=== PATIENT | female | born 1975 | race Caucasian/White ===

== ENCOUNTER 2017-10-10 11:38 | Emergency (ER) | payer OTHER ==
[~2017-10-10] VITALS: Ht 157.5 cm; Wt 67.6 kg
[~2017-10-10 11:38] MED LIST: Acetaminophen/Hydrocodone PO; IBUPROFEN600 MG PO
[2017-10-10] MEDS ORDERED: HYDROCODONE/APAP 10MG-325MG TAB PO ONE (12:00)
--- NOTE | 2017-10-10 12:44 | Diagnostic Imaging Report ---
EXAMINATION: Head and orbits CT without contrast. HISTORY: Status post fall, trauma, pain COMPARISON: Head CT on 02/27/2010 TECHNIQUE: Multidetector axial images were obtained without contrast from the foramen magnum to the vertex and over the face. The images were reconstructed using brain and bone algorithms. Thin section brain images were reformatted into coronal and sagittal planes. Head CT findings: Skull: No lytic or blastic lesions. No fractures. Parenchyma: Normal. No mass, hemorrhage or CT evidence of acute vascular insult. Brain volume: Normal for age. Ventricles: No hydrocephalus or displacement. Arteries: No density suggestive of thrombus. Dural sinuses: No abnormal density. Extra-axial spaces: No abnormal density. Foramen magnum: No mass, Chiari malformation, or basilar invagination. Sella: No obvious mass. Paranasal/mastoid sinuses: Imaged portions unremarkable. Face CT findings: Bones: No acute facial fractures. Facial soft tissues: Prominent left forehead, periorbital and premaxillary soft tissue swelling and hematoma without postseptal extension. Orbits contents: Unremarkable. Paranasal sinuses and drainage pathways: Partial opacification of the left maxillary sinus, otherwise clear. Nasal septum and nasal cavities: Mild right-sided deviation IMPRESSION: 1. No intracranial abnormalities, particularly no hemorrhage 2. No acute facial fractures. 3. Prominent left periorbital and forehead soft tissues hematoma. Signed by: Dr. Tiffany Solorzano M.D. on 10/10/2017 12:40 PM
--- NOTE | 2017-10-10 12:56 | Diagnostic Imaging Report ---
EXAMINATION: CT of the cervical spine HISTORY: Status post fall, trauma, pain COMPARISON: None available TECHNIQUE: Multidetector helical axial images were obtained without contrast from the foramen magnum to T1. The images were reconstructed using bone and soft tissue algorithms and were viewed in axial, sagittal and coronal planes. FINDINGS: Alignment: Kyphotic malalignment centered at C5-C6. Soft tissues: Normal. Vertebrae: -No acute displaced fractures. -Chronic mild compression fracture of the C5 and mainly C6 vertebral bodies (decreased vertebral body height by approximately 10% and 25% respectively), with anterior wedging and associated kyphotic malalignment. Minimal dorsal displacement of the superior endplate of the C6 vertebral body results in mild canal stenoses. No bone fragments are seen within the spinal canal. Irregularity of the right articular pillar of C6 is likely sequela from remote trauma as well. Degenerative changes: Mild symmetric disc bulge and facet arthrosis at C5-C6 results in minimal canal narrowing, likely related to remote trauma. Otherwise no significant degenerative changes, no spinal canal or foraminal stenosis IMPRESSION: 1. No acute cervical spine postraumatic abnormalities. 2. Kyphotic malalignment and anterior wedging of the C5 and C6 vertebral bodies, likely the sequela from remote trauma Note: Acute postraumatic spinal cord, vascular or ligamentous injuries cannot adequately be assessed by CT. Signed by: Dr. Tiffany Solorzano M.D. on 10/10/2017 12:52 PM
[2017-10-10] MEDS ORDERED: TETANUS/DIPHTHERIA TOX ADULT 0.5 ML SYR IM ONE (13:30)
[2017-10-10 14:10] VITALS: BP 136/76
== END 2017-10-10 13:55 | disposition home or self-care (01) ==
LOC: ER 11:38
DX: S00.83XA Contusion of other part of head, initial encounter (principal); S00.81XA Abrasion of other part of head, initial encounter; S00.212A Abrasion of left eyelid and periocular area, initial encounter; S40.212A Abrasion of left shoulder, initial encounter; S80.212A Abrasion, left knee, initial encounter; W01.0XXA Fall on same level from slipping, tripping and stumbling without subsequent striking against object, initial encounter; F17.210 Nicotine dependence, cigarettes, uncomplicated
CPT/HCPCS: 70450; 70480; 72125; 99283

== ENCOUNTER 2018-10-10 07:02 | Emergency (ER) | payer OTHER ==
[~2018-10-10] VITALS: Ht 157.5 cm; Wt 67.6 kg
--- OUTSIDE RECORDS SUMMARY | 2018-10-10 07:06 | XMS REPORT ---
Author [facility] Address Unknown Phone Unavailable Care Team Providers Care Steam Pipe Fitter Name Role Phone Eric PARIKH Unavailable Unavailable Payers Payer Name Policy Type Policy Number Effective Date Expiration Date Problems This patient has no known problems. Allergies, Adverse Reactions, Alerts Allergy Name Allergy Type Status Severity Reaction(s) Onset Date Inactive Date Treating Clinician Comments No Known Allergies DA Active U 2015-11-27 00:00:00 Medications This patient has no known medications. Results Test Description Test Time Test Comments Text Results Atomic Results Result Comments SCR MAMM BILATERAL NILAY CAD DIGITAL W/AUGMENTATION 2018-09-03 13:13:20 - SCR MAMM BILATERAL NILAY CAD DIGITAL W/AUGMENTATIONBILATERAL DIGITAL SCREENING MAMMOGRAM 3D/2D WITH CAD WITH AUGMENTATION: 09/02/2018CLINICAL: Asymptomatic. Digital breast tomosynthesis was performed in addition to routine CC and MLO views. Current mammographic images were evaluated by either a [employer] M-Vu or a [employer] ImageChecker CAD (computer aided detection system). Comparison is made to exam dated 07/10/2017 mammogram - [facility]. The tissue of both breasts is heterogeneously dense. This may lower the sensitivity of mammography. There is a benign intramammary node in the right breast. Bilateral breast implants are intact. No suspicious mass, architectural distortion, malignant type calcification, or lymph node abnormality detected. Breast architecture is stable compared to prior exams.IMPRESSION: BENIGNThere is no mammographic evidence of malignancy. Resume annual screening mammography in one year. Jae Mujica M.D. et/penrad:09/03/2018 13:13:20 Imaging T echnologist: Patricia Bhatti FW, [facility] sent: BIRADS 1-2 Normal Mammogram BI-RADS: 2 Benign BASIC METABOLIC PANEL 2018-07-02 12:36:00 SODIUM (test code=NA) 140 mmol/L 136-145 POTASSIUM (test code=K) 4.3 mmol/L 3.5-5.1 CHLORIDE (test code=CL) 108.0 mmol/L 98-107 CARBON DIOXIDE (test code=CO2) 22.0 mmol/L 21-32 ANION GAP (test code=GAP) 14.3 10-20 GLUCOSE (test code=GLU) 83 mg/dL 74-106 BLOOD UREA NITROGEN (test code=BUN) 7 mg/dL 7-18 GLOMERULAR FILTRATION RATE (test code=GFR) > 60 mL/min >=60 Estimated GFR by using Modified MDRD formula.Chronic kidney disease is defined as either kidney damageor GFR <60 mL/min/1.73 m2 for >3 months. CREATININE (test code=CREAT) 0.60 mg/dL 0.55-1.02 Note change in reference range due to change in reagent. BUN/CREATININE RATIO (test code=BUN/CREA) 10.9 10-20 CALCIUM (test code=CA) 8.4 mg/dL 8.5-10.1 BASIC METABOLIC [id number] 12:30:00* Test Item Value Reference Range Comments SODIUM (test code=NA) 140 mmol/L 136-145 POTASSIUM (test code=K) 4.3 mmol/L 3.5-5.1 CHLORIDE (test code=CL) 108.0 mmol/L 98-107 CARBON DIOXIDE (test code=CO2) mmol/L 21-32 ANION GAP (test code=GAP) 10-20 GLUCOSE (test code=GLU) mg/dL 74-106 BLOOD UREA NITROGEN (test code=BUN) mg/dL 7-18 GLOMERULAR FILTRATION RATE (test code=GFR) mL/min >=60 CREATININE (test code=CREAT) mg/dL 0.55-1.02 BUN/CREATININE RATIO (test code=BUN/CREA) 10-20 CALCIUM (test code=CA) mg/dL 8.5-10.1 - XR HAND 3 + V [id number] 12:20:00 FAX: Cindy Shoemaker NP [place]: B St: REG FAX: Steve Crowley [phone] Name: SOBIA REYNOLDS [facility] : 1975 Age/S: 43/F [place] Lacy Unit #: [id number] Loc: [place] [address] Phys: Cindy Shoemaker NP Acct: [id number] Dis Date: Status: REG ER PHONE #: [phone] Exam Date: 07/02/2018 1216 FAX #: [phone] Reason: R thumb cat bite EXAMS: CPT CODE: [id number] XR HAND 3 + [place] RT [id number] HISTORY: Right hip, compatible right. COMPARISON: None available. 3 views of the right hand: No acute fracture or dislocation. Joint spaces are preserved. No radiopaque foreign bodies. Mild osteopenia. No AVN of the lunate or the scaphoid bones. IMPRESSION: No acute fracture or dislocation. Joint spaces are preserved. No radiopaque foreign bodies. at 1220 Reported and signed by: Owen Reeves M.D. CC: Cindy Shoemaker ADOPTION SPECIALIST; Steve Tran Technologist: HERBERTH LYNNE RT (R) Trnscrd Date/Time/By: 07/02/2018 (8 220) : By: [email or web address] Orig Print D/T: S: 07/02/2018 (3960) PAGE 1 Signed Report CBC W/O [id number] 12:16:00* Test Item Value Reference Range Comments WHITE BLOOD CELL (test code=WBC) K/mm3 4.5-12.5 RED BLOOD CELL (test code=RBC) mill/mm3 3.7-5.2 HEMOGLOBIN (test code=HGB) 14.9 gram/dL 11.5-15.5 HEMATOCRIT (test code=HCT) 45.1 % 36.0-46.0 MEAN CELL VOLUME (test code=MCV) fL 80-98 MEAN CELL HGB (test code=MCH) picogram 27.0-33.0 MEAN CELL HGB CONCETRATION (test code=MCHC) gram/dL 33.0-36.0 RED CELL DISTRIBUTION WIDTH (test code=RDW) % 11.6-16.2 PLATELET COUNT (test code=PLT) K/mm3 150-450 MEAN PLATELET VOLUME (test code=MPV) fL 6.7-11.0 CBC W/O [id number] 12:16:00* Test Item Value Reference Range Comments WHITE BLOOD CELL (test code=WBC) 13.0 K/mm3 4.5-12.5 RED BLOOD CELL (test code=RBC) 4.67 mill/mm3 3.7-5.2 HEMOGLOBIN (test code=HGB) 14.9 gram/dL 11.5-15.5 HEMATOCRIT (test code=HCT) 45.1 % 36.0-46.0 MEAN CELL VOLUME (test code=MCV) 96.6 fL 80-98 MEAN CELL HGB (test code=MCH) 31.9 picogram 27.0-33.0 MEAN CELL HGB CONCETRATION (test code=MCHC) 33.0 gram/dL 33.0-36.0 RED CELL DISTRIBUTION WIDTH (test code=RDW) 13.0 % 11.6-16.2 PLATELET COUNT (test code=PLT) 320 K/mm3 150-450 MEAN PLATELET VOLUME (test code=MPV) 9.0 fL 6.7-11.0 CT ORBIT/SELLA/PF [place] [address] Patient Name: SOBIA REYNOLDS MR #: [id number] : 1975 Age/Sex: 42/F Req #: [id number] Adm Physician: Ordered by: JUAN ANTONIO SALAS ADOPTION SPECIALIST Report #: [id number] Location: ER Room/Bed: Procedure: [id number] CT/CT ORBIT/SELLA/PF AZEB harris Date: 10/10/17 Exam Time: 1210 REPORT STATUS: Signed EXAMINATION: Head and orbits CT without contrast. HISTORY: Sta tus post fall, trauma, pain COMPARISON: Head CT on 02/27/2010 TECHNIQUE: Mul tidetector axial images were obtained without contrast from the foramen magnum to the vertex and over the face. The images were reconstructed using brain and bone algorithms. Thin section brain images were reformatted into coronal and sagittal planes. Head CT findings: Skull: No lytic or blastic l esions. No fractures. Parenchyma: Normal. No mass, hemorrhage or CT ev idence of acute vascular insult. Brain volume: Normal for age. Ventricles: No hydrocephalus or displacement. Arteries: No density rios ggestive of thrombus. Dural sinuses: No abnormal density. Extra- axial spaces: No abnormal density. Foramen magnum: No mass, Chiari malfo rmation, or basilar invagination. Sella: No obvious mass. Paran hanna/mastoid sinuses: Imaged portions unremarkable. Face CT findings: Bones: No acute facial fractures. Facial soft tissues: Prominent left forehead, periorbital and premaxillary soft tissue swelling and hematoma with out postseptal extension. Orbits contents: Unremarkable. Paranas al sinuses and drainage pathways: Partial opacification of the left maxillary sinus, otherwise clear. Nasal septum and nasal cavities: Mild right-side d deviation IMPRESSION: 1. No intracranial abnormalities, particularl y no hemorrhage 2. No acute facial fractures. 3. Prominent left saad orbital and forehead soft tissues hematoma. Signed by: Mehdi Alegria on 10/10/2017 12:40 PM Dictated By: LOUANN SOLORZANO MD Electronically Mai d By: LOUANN SOLORZANO MD on 10/10/17 1240 Transcribed By: DUANE on 10/10/17 1240 COPY TO: JUAN ANTONIO SALAS NP CT BRAIN WO [place] [address] Patient Name: SOBIA REYNOLDS MR #: [id number] : 1975 Age/[facility]: 42[id number] Req #: [id number] Adm Physician: Ordered by: JUAN ANTONIO SALAS ADOPTION SPECIALIST Report #: [id number] Location: ER Room/Bed: Procedure: [id number] CT/CT BRAIN WO Exam Date: 10/10/17 Exam Time: 1210 REPORT STATUS: Signed EXAMINATION: Head and orbits CT without contrast. HISTORY: Status post fall, trauma, pain COMPARISON: Head CT on 02/27/2010 TECHNIQUE: Multidetecto r axial images were obtained without contrast from the foramen magnum to the v ertex and over the face. The images were reconstructed using brain and bone al gorithms. Thin section brain images were reformatted into coronal and sagitta l planes. Head CT findings: Skull: No lytic or blastic lesions. No fractures. Parenchyma: Normal. No mass, hemorrhage or CT evidence of acute vascular insult. Brain volume: Normal for age. Ventric les: No hydrocephalus or displacement. Arteries: No density suggestive of thrombus. Dural sinuses: No abnormal density. Extra-axial spa koby: No abnormal density. Foramen magnum: No mass, Chiari malformation, or basilar invagination. Sella: No obvious mass. Paranasal/mast oid sinuses: Imaged portions unremarkable. Face CT findings: Bones: No acute facial fractures. Facial soft tissues: Prominent left forehead, periorbital and premaxillary soft tissue swelling and hematoma without posts eptal extension. Orbits contents: Unremarkable. Paranasal sinuse s and drainage pathways: Partial opacification of the left maxillary sinus, ot herwise clear. Nasal septum and nasal cavities: Mild right-sided deviati on IMPRESSION: 1. No intracranial abnormalities, particularly no hemo rrhage 2. No acute facial fractures. 3. Prominent left periorbital a nd forehead soft tissues hematoma. Signed by: Dr. Louann Solorzano M.D. on 10/10 12:40 PM Dictated By: LOUANN SOLORZANO MD 1240 Transcribed By: DUANE on 10/10/17 1240 FRONT EDGER Y TO: JUAN ANTONIO SALAS ADOPTION SPECIALIST CT CERVICAL SPINE WO [place] [address] Patient Name: SOBIA REYNOLDS MR #: [id number] : 1975 Age/Sex: 42/F Req #: [id number] Adm Physician: Ordered by: JUAN ANTONIO SALAS NP Report #: [id number] Location: ER Room/Bed: Procedure: [id number] CT/CT CERVICAL SPINE WO Zacha m Date: 10/10/17 Exam Time: 1210 REPORT STATUS: Signed EXAMINATION: CT of the cervical spine HISTORY: Status post fall, trauma, pain COMPARISON: None available TECHNIQUE: Multidetector helical a xial images were obtained without contrast from the foramen magnum to T1. The images were reconstructed using bone and soft tissue algorithms and were view ed in axial, sagittal and coronal planes. FINDINGS: Alignm ent: Kyphotic malalignment centered at C5-C6. Soft tissues: Normal. Vertebrae: -No acute displaced fractures. -Chronic mild comp ression fracture of the C5 and mainly C6 vertebral bodies (decreased vertebral body height by approximately 10% and 25% respectively), with anterior wedging and associated kyphotic malalignment. Minimal dorsal displacement of the supe rior endplate of the C6 vertebral body results in mild canal stenoses. No bone fragments are seen within the spinal canal. Irregularity of the right articul ar pillar of C6 is likely sequela from remote trauma as well. D egenerative changes: Mild symmetric disc bulge and facet arthrosis at C5-C6 re sults in minimal canal narrowing, likely related to remote trauma. Otherwise n o significant degenerative changes, no spinal canal or foraminal stenosis IMPRESSION: 1. No acute cervical spine postraumatic abnormalities. 2. Kyphotic malalignment and anterior wedging of the C5 and C6 vertebral johann dies, likely the sequela from remote trauma Note: Acute postraumatic spinal cord, vascular or ligamentous injuries cannot adequately be assessed by CT. Signed by: Dr. Louann Solorzano M.D. on 10/10/2017 12:52 PM Dictated By: LOUANN SOLORZANO MD 1252 Tra nscribed By: DUANE on 10/10/17 1252 COPY TO: JUAN ANTONIO SALAS NP
[2018-10-10] MEDS ORDERED: ONDANSETRON HCL INJ 2MG/ML 2ML 2 MG/ML VIAL IV NR (08:01)
[2018-10-10] MEDS ORDERED: SODIUM CHLORIDE 0.9% 1000ML 1,000 ML IV STA (08:01)
[2018-10-10] MEDS ORDERED: KETOROLAC TROMETHAMINE 30 MG/ML VIAL IV STA (08:01)
[2018-10-10 08:09] LABS: BASOPHILS % 0.5 % (0.0-1.0); EOSINOPHILS # (AUTO) 0.1 (0.0-0.4); EOSINOPHILS % 0.9 % (0.0-6.0); HEMOGLOBIN 14.5 g/dL (12.0-16.0); LYMPHOCYTES # (AUTO) 0.9 (1.0-3.2); LYMPHOCYTES % 10.7 % (18.0-39.1); MEAN CORPUSCULAR HEMOGLOBIN 32.5 pg (28-32); MEAN CORPUSCULAR HGB CONC 35.4 g/dL (31-35); MEAN CORPUSCULAR VOLUME 91.9 fL (81-99); MONOCYTES % 11.3 % (4.4-11.3); NEUTROPHILS # (AUTO) 6.7 (2.1-6.9); NEUTROPHILS % 76.3 % (38.7-80.0); PLATELET COUNT 279 x10e3/uL (140-360); RED BLOOD COUNT 4.46 x10e6/uL (3.6-5.1); RED CELL DISTRIBUTION WIDTH 12.7 % (11.7-14.4)
[2018-10-10 08:10] LABS: BILIRUBIN,URINE NEGATIVE (NEGATIVE); CLARITY,URINE CLEAR (CLEAR); COLOR,URINE YELLOW (YELLOW); KETONES,URINE NEGATIVE (NEGATIVE); LEUKOCYTE ESTERASE ,URINE NEGATIVE (NEGATIVE); NITRITE,URINE NEGATIVE (NEGATIVE); PROTEIN,URINE DIPSTICK NEGATIVE (NEGATIVE); URINE UROBILINOGEN 0.2 mg/dL (0.2 - 1)
[2018-10-10 08:31] LABS: PREGNANCY TEST, URINE NEGATIVE (NEGATIVE)
[2018-10-10 08:42] LABS: ALANINE AMINOTRANSFERASE 41 IU/L (0-55); ALBUMIN 4.6 g/dL (3.5-5.0); ALBUMIN/GLOBULIN RATIO 1.4 (0.8-2.0); ALKALINE PHOSPHATASE 79 IU/L (40-150); ANION GAP 17.7 mmol/L (8-16); BLOOD UREA NITROGEN 8 mg/dL (7-26); BUN/CREATININE RATIO 11 (6-25); CALCIUM 10.5 mg/dL (8.4-10.2); CARBON DIOXIDE 22 mmol/L (22-29); CHLORIDE 102 mmol/L (98-107); CREATININE, SERUM 0.75 mg/dL (0.57-1.11); EST GLOMERULAR FILTRATION RATE > 60 ML/MIN (60-); GLUCOSE 106 mg/dL (74-118); POTASSIUM 3.7 mmol/L (3.5-5.1); SODIUM 138 mmol/L (136-145)
[2018-10-10 08:53] LABS: BACTERIA,URINE FEW /HPF; EPITHELIAL CELLS,URINE RARE /LPF; RBC,URINE 0-5 /HPF (0-5); WBC,URINE (MAN) 0-5 /HPF (0-5)
--- NOTE | 2018-10-10 09:08 | Diagnostic Imaging Report ---
Exam: Abdominal film with upright chest film Clinical History: Abdominal pain, chest pain Comparison: None. DISCUSSION: Chest: The lungs are well-inflated and without focal airspace consolidation, pleural effusion, or pneumothorax. Cardiomediastinal contour and pulmonary vasculature are within normal limits. No acute osseous abnormality. No free air under the diaphragm. Abdomen: The bowel gas pattern shows no dilated, air-filled loops of bowel. No mass effect or organomegaly. Metallic clips in the pelvis likely related to tubal ligation. No abnormal calcifications. Right upper quadrant surgical clips reflective of prior cholecystectomy. Exostosis right iliac wing partially visualized. IMPRESSION: No acute cardiopulmonary abnormality. Nonobstructive bowel gas pattern. No nic pneumoperitoneum. Signed by: Dr. Joe Morin M.D. on 10/10/2018 9:04 AM
[2018-10-10 09:21] LABS: INR 0.82; PROTHROMBIN TIME 11.8 seconds (11.9-14.5)
[2018-10-10 09:22] LABS: PARTIAL THROMBOPLASTIN TIME 34.8 seconds (23.8-35.5)
[2018-10-10 09:40] LABS: CREATINE KINASE MB 1.2 ng/mL (0-5.0)
[2018-10-10] MEDS ORDERED: DICYCLOMINE HCL 20 MG/2 ML VIAL IM ONE (10:00)
--- NOTE | 2018-10-10 12:55 | Diagnostic Imaging Report ---
EXAMINATION: CT of the abdomen and pelvis with contrast. TECHNIQUE: Spiral CT images of the abdomen and pelvis were performed from the lung bases to the lesser trochanters after the intravenous administration of 100 cc Isovue-370. Coronal and sagittal reformatted images were obtained. COMPARISON: Acute abdominal series same day CLINICAL HISTORY:Diffuse abdominal pain DISCUSSION: ABDOMEN/PELVIS: LOWER THORAX:Unremarkable. HEPATOBILIARY: No focal hepatic lesions. No intra-or extrahepatic biliary ductal dilation. The gallbladder has been removed. SPLEEN: No splenomegaly. PANCREAS: No focal masses or ductal dilatation. ADRENALS: No adrenal nodules. KIDNEYS/URETERS: No hydronephrosis, stones, or solid mass lesions. PELVIC ORGANS/BLADDER: Urinary bladder is unremarkable. Uterus is neutral in position and appears normal. Bilateral tubal ligation clips. Left ovarian corpus luteum cyst. PERITONEUM/RETROPERITONEUM: No free air or fluid. LYMPH NODES: No pelvic sidewall, retroperitoneal, or mesenteric lymphadenopathy. VESSELS: Abdominal aorta, major branch vessels, and iliac arterial systems are patent. Common hepatic artery is replaced to the superior mesenteric artery. Portal vein, splenic vein, and superior mesenteric vein are patent centrally. GI TRACT: The large bowel shows no evidence of distention or wall thickening. The descending and sigmoid colon are collapsed and poorly evaluated. The appendix is normal. There is no small bowel dilatation to suggest obstruction. BONES AND SOFT TISSUE: No osseous destructive lesions. Degenerative disc changes and facet arthropathy at the lumbosacral junction. Bilateral breast implants partially visualized. IMPRESSION: No acute intra-abdominal or pelvic CT abnormalities. Signed by: Dr. Joe Morin M.D. on 10/10/2018 12:51 PM
[2018-10-10] MEDS ORDERED: IOPAMIDOL 370 MG/ML 200 ML INFUS..BTL INJ ONE (13:00)
[2018-10-10] MEDS ORDERED: SODIUM CHLORIDE 0.9% 50ML 50 ML ONE (13:00)
[2018-10-10] MEDS ORDERED: HYDROMORPHONE 2MG/ML 2 MG/ML ML IV NR (13:15)
[2018-10-10 14:10] VITALS: BP 160/88
== END 2018-10-10 14:30 | disposition home or self-care (01) ==
LOC: ER 07:02
DX: R10.84 Generalized abdominal pain (principal); R11.0 Nausea; K58.9 Irritable bowel syndrome, unspecified; Q78.0 Osteogenesis imperfecta
CPT/HCPCS: 36415; 74022; 74177; 80053; 81001; 81025; 82150; 82550; 82553; 83690; 84484; 85025; 85610; 85730; 93005; 99284; J0500; J1170; J1885; J2405; J7030; Q9967

== ENCOUNTER 2018-10-13 14:11 | Emergency (ER) | payer OTHER ==
[~2018-10-13] VITALS: Ht 157.5 cm; Wt 67.6 kg
[2018-10-13 15:54] LABS: BASOPHILS % 0.5 % (0.0-1.0); EOSINOPHILS # (AUTO) 0.3 (0.0-0.4); EOSINOPHILS % 3.2 % (0.0-6.0); HEMATOCRIT 39.4 % (34.2-44.1); HEMOGLOBIN 13.4 g/dL (12.0-16.0); LYMPHOCYTES # (AUTO) 1.9 (1.0-3.2); LYMPHOCYTES % 23.1 % (18.0-39.1); MEAN CORPUSCULAR HEMOGLOBIN 32.1 pg (28-32); MEAN CORPUSCULAR VOLUME 94.5 fL (81-99); MONOCYTES # (AUTO) 0.8 (0.2-0.8); MONOCYTES % 9.4 % (4.4-11.3); NEUTROPHILS # (AUTO) 5.1 (2.1-6.9); NEUTROPHILS % 63.6 % (38.7-80.0); PLATELET COUNT 278 x10e3/uL (140-360); RED BLOOD COUNT 4.17 x10e6/uL (3.6-5.1); RED CELL DISTRIBUTION WIDTH 12.5 % (11.7-14.4)
--- NOTE | 2018-10-13 17:55 | Diagnostic Imaging Report ---
EXAM: CT Chest WITH contrast (PE Protocol) INDICATION: Chest pains ^PE PROTOCOL COMPARISON: CT abdomen and pelvis 10/10/2018. TECHNIQUE: Chest was scanned utilizing a multidetector helical scanner from the lung apex through the level of the diaphragm after administration of IV contrast. Thin section reconstructions were obtained with special concentration on the pulmonary arteries. Coronal and sagittal reformations were obtained. Pulmonary embolism protocol was performed. IV CONTRAST: 100 mL of Isovue 370 COMPLICATIONS: None RADIATION DOSE: Total DLP: 539.75 mGy*cm Estimated effective dose: (DLP x 0.014 x size factor) mSv CTDIvol has been reviewed. It is below the limits set by the Radiation Protocol Committee (RPC). Dose modulation, iterative reconstruction, and/or weight based adjustment of the mA/kV was utilized to reduce the radiation dose to as low as reasonably achievable. FINDINGS: LINES/ TUBES: None. LUNGS AND AIRWAYS: No filling defect is identified within the pulmonary arteries to the segmental level. Mild to moderate centrilobular emphysema with apical predominance. Mild bronchial wall thickening, with slight predominance in both upper lobes. Subtle groundglass nodules in both upper lobes, predominantly in the right upper lobe with tree-in-bud distribution. PLEURA: The pleural spaces are clear. HEART AND MEDIASTINUM: The thyroid gland is normal. No mediastinal, hilar or axillary lymphadenopathy. The heart is normal in size. There is no pericardial effusion. . Main pulmonary artery measures cm in diameter and the ascending aorta measures cm. UPPER ABDOMEN: Cholecystectomy. Upper abdomen is otherwise unremarkable. BONES: There are degenerative changes in the thoracic spine, greater than expected for age. SOFT TISSUES: Bilateral breast implants. IMPRESSION: 1. No pulmonary emboli. 2. Findings of bronchiolitis predominantly upper lobe, especially in the right upper lobe. 3. Mild to moderate emphysema with apical predominance. Signed by: Dr. Douglas Corrales M.D. on 10/13/2018 5:52 PM
[2018-10-13] MEDS ORDERED: KETOROLAC TROMETHAMINE 30 MG/ML VIAL IV ONE (18:10)
[2018-10-13] MEDS ORDERED: SODIUM CHLORIDE 0.9% 50ML 50 ML ONE (21:45)
[2018-10-13] MEDS ORDERED: IOPAMIDOL 370 MG/ML 200 ML INFUS..BTL INJ ONE (21:45)
== END 2018-10-13 18:54 | disposition home or self-care (01) ==
LOC: ER 14:11
DX: R07.9 Chest pain, unspecified (principal); Q78.0 Osteogenesis imperfecta; R09.1 Pleurisy
CPT/HCPCS: 36415; 71260; 85025; 85379; 99284; J1885; Q9967

== ENCOUNTER 2021-12-24 10:13 | Emergency (ER) | payer OTHER ==
[~2021-12-24] VITALS: Ht 157.5 cm; Wt 67.6 kg
[2021-12-24] MEDS ORDERED: KETOROLAC TROMETHAMINE 30 MG/ML VIAL IV STA (10:26)
[2021-12-24] MEDS ORDERED: ASPIRIN 81 MG CHEW TAB PO ONE (10:30)
[2021-12-24] MEDS ORDERED: SODIUM CHLORIDE FLUSH 10 ML SYR IV PRN (10:30)
[2021-12-24 10:42] LABS: BASOPHILS % 0.3 % (0.0-1.0); EOSINOPHILS # (AUTO) 0.2 (0.0-0.4); EOSINOPHILS % 1.9 % (0.0-6.0); HEMATOCRIT 46.7 % (34.2-44.1); HEMOGLOBIN 15.5 g/dL (12.0-16.0); LYMPHOCYTES # (AUTO) 3.6 (1.0-3.2); LYMPHOCYTES % 30.3 % (18.0-39.1); MEAN CORPUSCULAR HEMOGLOBIN 31.3 pg (28-32); MEAN CORPUSCULAR HGB CONC 33.2 g/dL (31-35); MEAN CORPUSCULAR VOLUME 94.3 fL (81-99); MONOCYTES # (AUTO) 0.9 (0.2-0.8); MONOCYTES % 7.6 % (4.4-11.3); NEUTROPHILS # (AUTO) 7.1 (2.1-6.9); NEUTROPHILS % 59.2 % (38.7-80.0); PLATELET COUNT 380 x10e3/uL (140-360); RED BLOOD COUNT 4.95 x10e6/uL (3.6-5.1); RED CELL DISTRIBUTION WIDTH 11.9 % (11.7-14.4)
[2021-12-24 11:01] LABS: ALANINE AMINOTRANSFERASE 21 IU/L (0-55); ALBUMIN 4.1 g/dL (3.5-5.0); ALKALINE PHOSPHATASE 71 IU/L (40-150); ANION GAP 13.3 mmol/L (8-16); BLOOD UREA NITROGEN 9 mg/dL (7-26); BUN/CREATININE RATIO 12 (6-25); CALCIUM 9.8 mg/dL (8.4-10.2); CARBON DIOXIDE 24 mmol/L (22-29); CHLORIDE 104 mmol/L (98-107); CREATININE, SERUM 0.75 mg/dL (0.57-1.11); GLUCOSE 86 mg/dL (74-118); POTASSIUM 4.3 mmol/L (3.5-5.1); SODIUM 137 mmol/L (136-145)
[2021-12-24 15:16] VITALS: BP 108/58
== END 2021-12-24 15:10 | disposition home or self-care (01) ==
LOC: ER 10:21
DX: R07.89 Other chest pain (principal); R05.9 Cough, unspecified; Q78.0 Osteogenesis imperfecta; F17.290 Nicotine dependence, other tobacco product, uncomplicated
CPT/HCPCS: 36415; 71046; 80053; 84484; 84702; 85025; 85379; 93005; 94760; 99284; J1885